=== PATIENT | female | born 1975 | race Caucasian/White ===

== ENCOUNTER → 2016-09-11 | Outpatient (CLI) | payer OTHER ==
--- NOTE | 2016-09-11 18:25 | MR ---
EXAMINATION TYPE: MR lumbar spine wo con DATE OF EXAM: 09/11/2016 COMPARISON: 04/08/2014 HISTORY: back pain with numbness down both legs x6 year TECHNIQUE: T1 and T2 axial and sagittal images of the lumbar spine are submitted. FINDINGS: There is no abnormal signal seen within the visualized spinal cord or paraspinal soft tissu es. At T11-T12 is a stable sagittal disc bulge. T12-L1 no disc herniation, canal stenosis, or foraminal encroachment. No degenerative disc disease. At L1-2 there is no disc herniation, canal stenosis, or foraminal encroachment. No degenerative disc disease. At L2-3 there is no disc herniation, canal stenosis, or foraminal encroachment. No degenerative disc disease. At L3-4 there is no disc herniation, canal stenosis, or foraminal encroachment. No degenerative disc disease. At L4-5 there is facet arthropathy but no disc herniation or canal stenosis. Neural foramina remain p atent. At L5-S1 there is facet arthropathy with central left paracentral disc protrusion mild effacement of thecal sac. Mild bilateral foraminal encroachment. Vertebral body hemangioma of S1. IMPRESSION: 1. Degenerative disc disease and small disc protrusion L5-S1 with mild bilateral foraminal encroachme nt but no canal stenosis. Findings appear stable.
== END | disposition home or self-care (01) ==
LOC: RADMRIMAIN 16:35
PROVIDERS: ATTEND Psychiatry & Neurology Neurology
DX: M51.27 Other intervertebral disc displacement, lumbosacral region (principal); M51.37 Other intervertebral disc degeneration, lumbosacral region
CPT/HCPCS: 72148

== ENCOUNTER → 2017-12-23 | Outpatient (CLI) | payer OTHER ==
--- NOTE | 2017-12-25 08:19 | MM ---
Reason for exam: screening (asymptomatic). Last mammogram was performed 3 years and 7 months ago. Physical Findings: A clinical breast exam by your physician is recommended on an annual basis and results should be correlated with mammographic findings. MG 3D Screening Mammo W/Cad Bilateral CC and MLO view(s) were taken. Prior study comparison: June 02, 2014, bilateral MG screening mammo w CAD. There are scattered fibroglandular densities. No significant changes when compared with prior studies. ASSESSMENT: Negative, BI-RAD 1 RECOMMENDATION: Routine screening mammogram of both breasts in 1 year.
== END | disposition home or self-care (01) ==
LOC: RADMAMWWP 12:45
PROVIDERS: ATTEND Obstetrics & Gynecology
DX: Z12.31 Encounter for screening mammogram for malignant neoplasm of breast (principal)
CPT/HCPCS: 77063; 77067

== ENCOUNTER → 2023-04-09 | Day surgery (SDC) | payer OTHER ==
[2023-04-03 14:50] VITALS: BMI 39.8
--- NOTE | 2023-04-08 09:05 | P.HPOR ---
History of Present Illness H&P Date: 04/08/23 ubjective: This is a 47 year old female that presents today for initial evaluation regarding a 4 year history of progressively worsening bilateral hand paresthesias with associated weakness. She states her right side is worse than her left. She denies any injury or prior surgery to either arm. She states she has noticed that the right side is becoming weak and she is dropping things and the numbness is becoming more constant. She has tried bracing, steroid injections with only temporary relief. 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 Physical Examination: LUE: AIN/PIN/Radial/Ulnar/Median motor intact. Radial/Ulnar/Median SILT. 2+/4 Radial/Ulnar pulses palpated. 5/5 APB, 5/5 FDI. Negative Finkelsteins, negative CMC grind, positive Durkan's compression. Positive tinels at cubital tunnel. RUE: AIN/PIN/Radial/Ulnar/Median motor intact. Radial/Ulnar/Median SILT. 2+/4 Radial/Ulnar pulses palpated. 5/5 APB, 5/5 FDI. Negative Finkelsteins, negative CMC grind, positive Durkan's compression. Positive tinels at cubital tunnel. EMG/NCV: EMG/NCV testing of the B/L upper extremities on 08/05/22 demonstrates severe right and moderate left carpal tunnel syndrome. B/L cubital tunnel syndrome Impression: 1.) Right carpal tunnel syndrome, severe. 2.) Right cubital tunnel syndrome 3.) Left carpal tunnel syndrome, moderate. 4.) Left cubital tunnel syndrome Plan: Diagnosis and treatment options were discussed with the patient. We discussed she is a surgical candidate for right endoscopic versus open carpal tunnel release and open cubital tunnel release due to her failing conservative treatment for her bilateral carpal tunnel and cubital tunnel syndrome.Risks and benefits of surgery including bleeding, infection, damage to surrounding tissue, need for further surgery, possible need to convert to open procedure, residual numbness were discussed and the patient wished to go forward with surgery. The patient was agreeable with this plan. CC: Angel Mathias M.D. -Mateus Grande DO Orthopedic Hand/Upper Extremity Surgeon Past Medical History Past Medical History: Osteoarthritis (OA) History of Any Multi-Drug Resistant Organisms: None Reported Past Surgical History: Section, Cholecystectomy, Orthopedic Surgery Additional Past Surgical History / Comment(s): LT HIP SURGERY-1983- Past Anesthesia/Blood Transfusion Reactions: Postoperative Nausea & Vomiting (PONV) Smoking Status: Current every day smoker - Past Family History Mother Family Medical History: No Reported History Medications and Allergies Home Medications Medication Instructions Recorded Confirmed Type Turmeric Root Extract [Turmeric] 500 mg PO BID 04/03/23 04/03/23 History oxyCODONE-APAP 10-325MG [Percocet 1 tab PO Q8HR PRN 04/03/23 04/03/23 History 10-325 mg] Allergies Allergy/AdvReac Type Severity Reaction Status Date / Time No Known Allergies Allergy Verified 04/03/23 14:20 Physical Examination Osteopathic Statement: *. No significant issues noted on an osteopathic structural exam other than those noted in the History and Physical/Consult.
[~2023-04-09] MED LIST: ALBUTEROL HFA INHALER INHALATION ONE; BUPIVACAINE (PF) 0.5% 30 ML VIAL SQ ONE; HYDROmorphone (PF) 1 MG/ML ONE; KETAMINE HCL IN 0.9 % NACL 50 MG/5 ML SYRINGE ONE; LACTATED RINGERS 1,000 ML IV SCH; LIDOCAINE 1% INJ 10MG/ML (20 ML MDV) ONE; LIDOCAINE 2% INJ 20 MG/ML SQ ONE; MIDAZOLAM 2 MG/2 ML VIAL ONE; ONDANSETRON 4 MG/2 ML VIAL IVP ONE; PROPOFOL 10 MG/ML 20 ML VIAL IV ONE; SUCCINYLCHOLINE CHLORIDE 200 MG/10 ML VIAL IV ONE; fentaNYL (PF) 50 MCG/ML 2 ML AMP IV PRN; fentaNYL (PF) 50 MCG/ML 2 ML AMP ONE
--- NOTE | 2023-04-09 11:13 | P.OP ---
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 Risks and benefits of surgery were discussed with the patient including bleeding, damage to surrounding tissue, infection, need for further surgery as well as risks of anesthesia including pulmonary embolism and even and the patient wished to proceed with surgical intervention. The patient was seen in the pre-operative area by myself. Consent and H&P were completed and updated. The correct extremity was marked in the pre-operative area by myself and all other questions were answered. Operative Narrative: The patient was brought to the operating room by the department of anesthesia. They remained on the portable stretcher and a rolling hand table was brought to the side of the operative extremity. Pre-operative time out was performed indicating the correct patient, procedure and laterality. All in the room agreed. Pre-operative antibiotics were given prior to skin incision. The patient was then drifted off to sleep by the department of anesthesia. A nonsterile tourniquet was then applied to the operative extremity and the right upper extremity was then prepped and draped in normal sterile fashion. The operative extremity was the exsanguinated with an esmarch bandage and the tourniquet was inflated to 250mmHg. 15 blade scalpel was utilized to make a transverse incision on the palmar skin just ulnar to the palmaris longus tendon at the level of the distal wrist crease. Ragnell retractor was then placed radially and blunt dissection was performed to reveal the distal forearm fascia. This was lifted with fine Сергей pick ups and Littler tenotomy scissors were then used to open the forearm fascia transversely and a double skin hook was then placed. Hamate finder was placed into the carpal tunnel and then sequential sized dilators were inserted followed by the synovial elevator to separate the flexor tenosynovium from the undersurface of the transverse carpal ligament and a washboard texture was felt. The MicroAire endoscopic carpal tunnel release system gun was the then inserted into the carpal tunnel hugging the deep portion of the transverse carpal ligament in line with the base of the ring finger. Transverse fibers of the ligament were directly visualized. Pressure was applied on the palm to reveal the distal extent of the transverse carpal ligament. The blade was then deployed and the distal half of the transverse carpal ligament was released. The scope was then brought distal again and remaining transverse fibers were incised with the blade. The proximal half of the transverse carpal ligament was then divided and again the scope was advanced distal and remaining transverse fibers were incised with the blade. The radial and ulnar leaflets were directly visualized and mobile consistent with complete release. Tenotomy scissors were then utilized to release the remaining distal forearm fascia under direct visualization taking care to preserve the palmar cutaneous branch of the median nerve. Attention was brought to the medial elbow. 15 blade scalpel was used to incise skin in between the medial epicondyle and olecranon in a curvlinear and longitudinal fashion. Blunt dissection was taken down through subcutaneous tissue with tenotomy scissors and branches of the MABCN were identified and protected. Dissection was carried proximally and the ulnar nerve was identified and released in it's entirety to the the intermuscular septum. Dissection was then carried distally and cabrera's ligament was released at the medial epicondyle, the nerve appeared compressed at this location. Dissection was then carried out further distal and the fascia of the two heads of the FCU were incised and the ulnar nerve was decompressed with Flint and tenotomy scissors and appeared to be tension free. The nerve was maximally compressed at the two heads of the FCU and was erythematous and hourglass shaped. The elbow was the flexed and extended and the ulnar nerve appeared to be stable in a tension free manner 22 0.5% bupivacaine was injected into the subcutaneous tissues. Skin closure was performed with interrupted 3-0 Monocryl sutures followed by running 4-0 Monocryl sutures and closed with steri strips, 4x4s and a large nora wrap. Tourniquet was then let down and the hand had immediate perfusion. The patient was then woken by the department of anesthesia and transferred to PACU in stable condition. Clem VICTOR was present for the case to assist in major portions of the procedure including manipulation of the arm and protection over neurovascular structures. Mateus Grande D.O. Orthopedic Hand/Upper Extremity Surgeon
[2023-04-09 11:23] VITALS: TEMP 97
[2023-04-09 11:47] VITALS: PULSE 93; RESP 20
[2023-04-09 12:34] VITALS: BP 133/83
== END | disposition home or self-care (01) ==
LOC: OR 09:06
PROVIDERS: ATTEND Orthopaedic Surgery Hand Surgery
DX: G56.01 Carpal tunnel syndrome, right upper limb (principal); G56.21 Lesion of ulnar nerve, right upper limb; G56.03 Carpal tunnel syndrome, bilateral upper limbs; G56.23 Lesion of ulnar nerve, bilateral upper limbs; M19.90 Unspecified osteoarthritis, unspecified site; F17.200 Nicotine dependence, unspecified, uncomplicated; Z79.899 Other long term (current) drug therapy
CPT/HCPCS: 81025; 29848; 64718; J2001 ×2; J2250; J0330; J2405; J3010; J1170; J2704; J0665

== ENCOUNTER → 2023-05-19 | Outpatient (CLI) | payer OTHER ==
--- NOTE | 2023-05-20 14:13 | MM ---
Reason for Exam: Screening (asymptomatic). Last mammogram was performed 1 year(s) and 4 month(s) ago. Patient History: Menarche at age 15. First Full-Term at age 23. Risk Values: Leona 5 year model risk: 0.7%. NCI Lifetime model risk: 8.6%. Prior Study Comparison: 06/02/2014 Bilateral Screening Mammogram, [facility]. 12/23/2017 Bilateral Screening Mammogram, [facility]. 12/31/2021 Bilateral MG screening mammo w CAD, [facility]. Tissue Density: There are scattered fibroglandular densities. Findings: Analyzed By CAD. There is no suspicious group of microcalcifications or new suspicious mass. Overall Assessment: Negative, BI-RAD 1 Management: Screening Mammogram of both breasts in [address] [facility] will attempt to contact patient to return for supplemental views and ultrasound if indicated. Patient should continue monthly self-breast exams. A clinical breast exam by your physician is recommended on an annual basis. This exam should not preclude additional follow-up of suspicious palpable abnormalities. Note on Leona scores and lifetime risk: 1. A Leona score greater than 3% is considered moderate risk. If this is the case, consider specialist referral to assess eligibility for a risk reducing agent. 2. If overall lifetime risk for the development of breast cancer is 20% or higher, the patient may qualify for future screening with alternating mammogram and breast MRI. Electronically signed and approved by: Jeovany Felder DO
== END | disposition home or self-care (01) ==
LOC: RADMAMWWP 08:37
PROVIDERS: ATTEND Obstetrics & Gynecology
DX: Z12.31 Encounter for screening mammogram for malignant neoplasm of breast (principal)
CPT/HCPCS: 77067